=== PATIENT | male | born 1955 | race Caucasian/White ===

== ENCOUNTER 2018-05-01 02:11 | Inpatient (IN) ==
[2018-05-03 00:27] VITALS: BP 153/76
== END 2018-05-03 13:17 | disposition home or self-care (01) | DRG 871 ==
LOC: EDBD → EDUNIT# → N.ED 02:11 → N.EDINP 05:13 → SUATTDRO 05:13 → N.ICU 05:31
PROVIDERS: ADMIT Internal Medicine; ATTEND Internal Medicine